=== PATIENT | male | born 1960 | race African-American/Black ===

== ENCOUNTER → 2024-10-24 09:14 | Outpatient (REF) | payer BC, SELFPAY | LOC: HWRAD 09:14 | PROVIDERS: ATTENDING PHYSICIAN Family Medicine | DX: K76.89 Other specified diseases of liver (principal); E78.00 Pure hypercholesterolemia, unspecified; Z68.28 Body mass index [BMI] 28.0-28.9, adult; I10 Essential (primary) hypertension | CPT/HCPCS: 76700 ==